=== PATIENT | female | born 1970 ===

== ENCOUNTER 2020-07-04 11:03 | Emergency (ER) | payer OTHER ==
[~2020-07-04] VITALS: Ht 167.6 cm; Wt 68.0 kg
[2020-07-04] MEDS ORDERED: MECLIZINE HCL25 MG PO (15:44)
[2020-07-04] MEDS ORDERED: ZITHROMAX500 MG PO (15:44)
== END 2020-07-04 15:55 | disposition home or self-care (01) ==
LOC: ER 11:03
DX: R42 Dizziness and giddiness (principal); R11.2 Nausea with vomiting, unspecified; B96.0 Mycoplasma pneumoniae [M. pneumoniae] as the cause of diseases classified elsewhere; Z03.818 Encounter for observation for suspected exposure to other biological agents ruled out